=== PATIENT | female | born 1995 | race Caucasian/White ===

== ENCOUNTER 2019-10-02 22:14 | Inpatient (IN) ==
[2019-10-02] MEDS ORDERED: LACTATED RINGERS 500 ML IV PRN (22:46)
[2019-10-02 23:31] LABS: Basophils % 0.3 % (0.0-0.8); Eosinophils % 0.4 % (0.00-10.9); Hematocrit 35.5 VOL% (35.7-47.0); Hemoglobin 12.7 GM/DL (12.0-16.0); Immature Granulocytes % 0.9 %; Mean Corpuscular HGB Conc 35.8 GM/DL (32-36); Mean Corpuscular Volume 87.9 FL (87-102); Mean Platelet Volume 10.4 FL (9.6-12.0); Monocytes % 8.4 % (1.7-12.7); Platelet Count 196 T/CUMM (130-400); Red Blood Count 4.04 MC/CUMM (3.8-5.5); Red Cell Distribution Width 12.6 % (9.3-17.3); White Blood Count 11.3 T/CUMM (4-12)
[2019-10-03 00:03] LABS: Albumin 2.4 G/DL (3.4-5.0); Bilirubin,Total 0.4 MG/DL (0.2-1.0); Calcium 8.7 MG/DL (8.5-10.1); Total Protein 6.3 G/DL (6.4-8.3)
[2019-10-03] MEDS: BUTORPHANOL 1 MG/ML VIAL IV PRN ×2 (11:01→15:52)
[2019-10-04] MEDS: ONDANSETRON 4 MG/2 ML VIAL IV PRN ×2 (00:25→18:40)
[2019-10-04] MEDS: BUTORPHANOL 1 MG/ML VIAL IV PRN (00:25)
[2019-10-04] MEDS ORDERED: OXYTOCIN/LR 20 UNIT/1,000 ML BAG IV PRN ×2 (04:00→12:00)
[2019-10-04] MEDS ORDERED: PROMETHAZINE 25 MG/1 ML VIAL IM PRN (08:30)
[2019-10-04] MEDS ORDERED: fentaNYL 2 MCG/ROPIV 0.2% EPID 100 ML EPIDURAL SCH (08:30)
[2019-10-04] MEDS ORDERED: CITRIC ACID/SODIUM CITRATE 30 ML UDCUP PO ONE (08:30)
[2019-10-04] MEDS ORDERED: LACTATED RINGERS 1,000 ML IV ONE ×2 (08:30→14:48)
[2019-10-04] MEDS ORDERED: LACTATED RINGERS 1,000 ML IV SCH (08:30)
[2019-10-04] MEDS ORDERED: ePHEDrine 50 MG/ML AMP IV PRN (08:30)
[2019-10-04] MEDS ORDERED: NALOXONE 0.4 MG/ML VIAL IV PRN (08:30)
[2019-10-04] MEDS ORDERED: hydrOXYzine HCL 25 MG/1 ML VIAL IM PRN (08:30)
[2019-10-04] MEDS ORDERED: FAMOTIDINE 20 MG/2 ML VIAL IV ONE (08:30)
[2019-10-04] MEDS ORDERED: diphenhydrAMINE 50 MG/1 ML VIAL IV PRN (08:30)
[2019-10-04] MEDS: LACTATED RINGERS 1,000 ML IV SCH ×2 (08:54→11:10)
[2019-10-04] MEDS ORDERED: ceFAZolin 2,000 MG in PREMIX 1 EACH IV ONE (13:26)
[2019-10-04] MEDS ORDERED: OXYTOCIN/LR 20 UNIT/1,000 ML BAG IV ONE ×3 (13:28→14:26)
[2019-10-04] MEDS ORDERED: miSOPROStoL 200 MCG TABLET ONE ×2 (13:30→13:56)
[2019-10-04] MEDS ORDERED: TERBUTALINE 1 MG/1 ML VIAL ONE (13:30)
[2019-10-04] MEDS ORDERED: TRANEXAMIC ACID 1,000 MG/10 ML VIAL ONE (13:30)
[2019-10-04] MEDS ORDERED: CARBOPROST TROMETHAMINE 250 MCG/ML AMP IM ONE (13:31)
[2019-10-04] MEDS ORDERED: METHYLERGONOVINE 0.2 MG/1 ML AMP ONE (13:31)
[2019-10-04] MEDS ORDERED: TERBUTALINE 1 MG/1 ML VIAL SUBCUT ONE (13:42)
[2019-10-04] MEDS ORDERED: BISACODYL 10 MG SUPP RECTAL PRN (14:26)
[2019-10-04] MEDS ORDERED: ONDANSETRON 4 MG/2 ML VIAL IV PRN (14:26)
[2019-10-04] MEDS ORDERED: BENZOCAINE 20%/MENTHOL 0.5% SPRAY 56 GM CAN TOP PRN (14:26)
[2019-10-04] MEDS ORDERED: RHO(D) IMMUNE GLOBULIN 300 MCG SYRINGE IM ONE (14:26)
[2019-10-04] MEDS ORDERED: HYDROCORTISONE 2.5% RECTAL CREAM 30 GM TUBE TOP PRN (14:26)
[2019-10-04] MEDS ORDERED: MEASLES/MUMPS/RUBELLA VACCINE 0.5 ML VIAL SUBCUT ONE (14:26)
[2019-10-04] MEDS ORDERED: WITCH HAZEL PADS 100/JAR TOP PRN (14:26)
[2019-10-04] MEDS ORDERED: oxyCODONE/ACETAMINOPHEN 5-325 MG TABLET PO PRN (14:26)
[2019-10-04] MEDS ORDERED: ACETAMINOPHEN 325 MG TABLET PO PRN (14:26)
[2019-10-04] MEDS ORDERED: DIPH/TET/ACEL PERT BOOSTER VACCINE 0.5 ML VIAL IM ONE (14:26)
[2019-10-04] MEDS ORDERED: LANOLIN 50% CREAM 0.3 OZ TUBE TOP PRN (14:26)
[2019-10-04] MEDS ORDERED: ONDANSETRON 4 MG/2 ML VIAL ONE (14:47)
[2019-10-04] MEDS ORDERED: MIDAZOLAM 2 MG/2 ML VIAL ONE (14:47)
[2019-10-04] MEDS ORDERED: ESMOLOL 100 MG/10 ML VIAL IV ONE (14:47)
[2019-10-04] MEDS ORDERED: LIDOCAINE MPF 2% /EPI 20 ML VIAL ONE (14:47)
[2019-10-04] MEDS ORDERED: MORPHINE 10 MG/10 ML VIAL ONE (14:47)
[2019-10-04] MEDS ORDERED: PHENYLEPHRINE 1 MG/10 ML SYRINGE IV ONE (14:48)
[2019-10-04] MEDS: IBUPROFEN 800 MG TABLET PO PRN (19:54)
[2019-10-04] MEDS: DOCUSATE SODIUM 100 MG CAPSULE PO SCH (21:36)
[2019-10-04] MEDS ORDERED: ceFAZolin 2,000 MG in PREMIX 1 EACH IV SCH (22:00)
[2019-10-04] MEDS: ceFAZolin 1,000 MG in SYRINGE 1 EACH IV SCH (22:17)
[2019-10-05 04:02] LABS: Basophils % 0.3 % (0.0-0.8); Eosinophils % 0.2 % (0.00-10.9); Hemoglobin 9.7 GM/DL (12.0-16.0); Immature Granulocytes % 0.5 %; Immature Granulocytes Absolute 0.06 #; Lymphocytes # 1.4 10*3/uL (1.4-4.0); Lymphocytes % 12.1 % (21.3-54.2); Mean Corpuscular HGB Conc 33.4 GM/DL (32-36); Mean Corpuscular Volume 92.1 FL (87-102); Mean Platelet Volume 10.3 FL (9.6-12.0); Neutrophils % 78.9 % (38.7-73.9); Platelet Count 146 T/CUMM (130-400); Red Blood Count 3.15 MC/CUMM (3.8-5.5); Red Cell Distribution Width 12.8 % (9.3-17.3); White Blood Count 11.6 T/CUMM (4-12)
[2019-10-05] MEDS: ceFAZolin 1,000 MG in SYRINGE 1 EACH IV SCH (06:10)
[2019-10-05] MEDS: IBUPROFEN 800 MG TABLET PO PRN ×2 (08:10→14:00)
[2019-10-05] MEDS: oxyCODONE/ACETAMINOPHEN 5-325 MG TABLET PO PRN ×3 (08:10→23:32)
[2019-10-05] MEDS: DOCUSATE SODIUM 100 MG CAPSULE PO SCH ×2 (08:10→21:10)
[2019-10-06 08:36] VITALS: BP 119/73
[2019-10-06] MEDS: DOCUSATE SODIUM 100 MG CAPSULE PO SCH (09:17)
[2019-10-06] MEDS: oxyCODONE/ACETAMINOPHEN 5-325 MG TABLET PO PRN (09:18)
== END 2019-10-06 12:20 | disposition home or self-care (01) | DRG 788 ==
LOC: N.LDOUT 22:14 → N.LD 22:16 → N.OB 10-04 17:30
PROVIDERS: ADMIT Specialist; ATTEND Specialist
PROC: LDCSECT (ICD-10-PCS; 2019-10-04 13:30)